=== PATIENT | female | born 1940 | race Caucasian/White ===

== ENCOUNTER → 2018-02-05 | Outpatient (CLI) | payer MEDICARE, MEDICAID ==
[~2018-02-05] MED LIST: POLY119P24 PO; TRAM-420 PO
--- NOTE | 2018-02-05 15:18 | RADIOLOGY IMAGING REPORT ---
FACILITY: [facility] PATIENT NAME: Lula Sanchez : 1940 MR: [id number] V: [id number] EXAM DATE: ORDERING PHYSICIAN: THALIA SORENSON TECHNOLOGIST: Location: [facility] Patient: Lula Sanchez : 1940 Visit/Account:[id number] Date of Sevice: 02/05/2018 Exam type: CHEST PA AND LAT History: Short of breath, smoker x35 years Comparison: None. Findings: There is an increased AP diameter the chest which can be seen with COPD. There is peribronchial thic kening throughout the lungs. No evidence of pleural effusions or overt pulmonary edema. The cardiac silhouette is mildly enlarged is marked ectasia the thoracic aorta. This ostomy in the visualized b ones and spondylotic changes of the thoracic spine. There are several mild wedge-shaped compression fractures in the thoracic spine IMPRESSION: 1. Increased AP diameter the chest which can be seen with COPD Bronchial thickening throughout the lungs which could be chronic although an acute peribronchial infl ammatory process not excluded Mild cardiomegaly and marked ectasia thoracic aorta Report Dictated By: Candelaria Meehan MD at 02/05/2018 3:10 PM Report E-Signed By: Candelaria Meehan MD at 02/05/2018 3:12 PM WSN:[id number]
== END ==
LOC: RAD 13:44
PROVIDERS: ATTEND Family Medicine
DX: I51.7 Cardiomegaly (principal); I77.811 Abdominal aortic ectasia; R91.8 Other nonspecific abnormal finding of lung field
CPT/HCPCS: 71046

== ENCOUNTER 2018-04-25 18:40 | Emergency (ER) | payer MEDICARE, MEDICAID ==
--- NOTE | 2018-04-25 18:43 | ER Report ---
History and Physical Time Seen By MD: 18:43 HPI/ROS CHIEF COMPLAINT: shoulder pain HISTORY OF PRESENT ILLNESS: This is a 78 year old female. She has a history of shoulder pain in the past, but tonight, she was lifting a gallon of milk out of the car when had sudden severe pain. When holding the arm still, she has no pain , but any movement seems to make it worse. Pain is described in the lateral and posterior shoulder. Normal sensation in the arm and hand. She can move the rest of the arm without pain, but shoulder movement causes pain. No chest pain or shortness of breath. No fevers or chills. Allergies: Coded Allergies: No Known Drug Allergies (Unverified , 07/13/15) Home Meds Active Scripts Hydrocodone Bit/Acetaminophen (HYDROCODON-ACETAMINOPHEN 5-325) 1 Each Tablet, 1 EACH PO Q4H Y for PAIN, #12 TAB 0 Refills Prov:JOJO RUIZ MD 04/25/18 Ketorolac Tromethamine (KETOROLAC TROMETHAMINE) 10 Mg Tab, 10 MG PO Q6H Y for PAIN, #12 TAB 0 Refills Prov:JOJO RUIZ MD 04/25/18 Reported Medications Multivitamin (MULTIVITAMINS) 1 Each Capsule, 1 EACH PO QDAY, CAPSULE 04/25/18 Digestive 8/L.acidoph/Pectin (Digestive Enzymes Tablet) 50 Million Cell-100 Mg Tablet, 1 TAB PO Q4H 04/25/18 Discontinued Scripts Tramadol Hcl (TRAMADOL HCL) 50 Mg Tablet, 50-100 MG PO Q6H for PAIN, #30 Prov:DONNA HUIZAR DO 07/13/15 Tramadol Hcl (TRAMADOL HCL) 50 Mg Tablet, 50 MG PO Q4-6H for PAIN, #30 MG TAKE ONE TO TWO TABLETS BY MOUTH EVERY FOUR TO SIX HOURS NEEDED Prov:DON PEÑA MD 06/30/15 Reviewed Nurses Notes: Yes Hx Smoking: No (3YRS AGO) Smoking Status: Former Smoker Hx Substance Use Disorder: No Constitutional Vital Sign - Last 24 Hours 04/25/18 04/25/18 04/25/18 04/25/18 18:46 18:55 19:00 19:10 Temp 98.6 Pulse 79 72 77 Resp 24 B/P (MAP) 193/95 159/92 (114) Pulse Ox 94 93 91 O2 Delivery Nasal Cannula 5/26/18 5/26/18 5/26/18 5/26/18 19:25 19:30 19:40 19:55 Pulse 71 72 80 B/P (MAP) 148/99 (115) Pulse Ox 94 91 93 04/25/18 04/25/18 04/25/18 04/25/18 20:00 20:10 20:25 20:30 Pulse 71 72 73 B/P (MAP) 169/100 (123) Pulse Ox 93 93 93 04/25/18 04/25/18 20:35 20:40 Pulse 72 71 B/P (MAP) 176/111 (132) Pulse Ox 91 93 Physical Exam General Appearance: The patient is alert. No acute distress. Respiratory: Breathing easily and unlabored. Clear to auscultation. Cardiovascular: Regular rate and rhythm. Normal capillary refill and radial pulses. Neurological: Alert and oriented x3. Normal sensation in the right arm and hand. Skin: Warm and dry. No rashes. Musculoskeletal: No pain with palpation throughout the shoulder, upper arm and clavicle. Normal range of motion of hand, wrist and elbow. Minimal pain with passive range of motion, some pain with extension and flexion, but not really with passive abduction. She has significant pain with active extension, flexion and abduction. Positive Neers and Jara tests. No pain over scapula, spine or clavicle. DIFFERENTIAL DIAGNOSIS: After history and physical exam, differential diagnosis was considered for pain in the shoulder, mild chronic with severe acute worsening, likely rotator cuff and impingement. Medical Decision Making EKG/Imaging Imaging SHOULDER MIN 2 VIEWS RIGHT HISTORY: Shoulder pain. Worsening of chronic pain. No known injury. COMPARISON: No prior shoulder x-rays. There is a prior chest x-ray from 2017. TECHNIQUE: AP and scapular Y views of the right shoulder. FINDINGS: There is diffuse bony demineralization. There is no acute fracture or dislocation. No acromioclavicular joint separation. There is stable deformity of the mid right clavicle and stable concave deformity of the mid superior cortex, potentially related to prior trauma. There are healed right-sided rib fractures. Stable deformities of the superior endplates of T6, T9, and T11. IMPRESSION: 1. No acute osseous abnormality of the right shoulder. Report Dictated By: Gail Robb at 04/25/2018 8:07 PM ED Course/Re-evaluation ED Course Discussed conservative treatment regarding rotator cuff problems. Negative x- ray. Given Toradol for pain. Instructed on use of sling, application of ice, relative rest and follow-up. Decision to Disposition Date: April 25, 2018 Decision to Disposition Time: 20:16 Depart Departure Latest Vital Signs Vital Signs Date Time Temp Pulse Resp B/P (MAP) Pulse Ox O2 Delivery O2 Flow Rate FiO2 04/25/18 20:40 71 176/111 (132) 93 04/25/18 18:46 98.6 24 Nasal Cannula Impression: Primary Impression: Rotator cuff (capsule) sprain Condition: Improved Disposition: HOME OR SELF-CARE Referrals: THALIA SORENSON DO (PCP) New Scripts Hydrocodone Bit/Acetaminophen (HYDROCODON-ACETAMINOPHEN 5-325) 1 Each Tablet 1 EACH PO Q4H Y for PAIN, #12 TAB 0 Refills Prov: JOJO RUIZ MD 04/25/18 Ketorolac Tromethamine (KETOROLAC TROMETHAMINE) 10 Mg Tab 10 MG PO Q6H Y for PAIN, #12 TAB 0 Refills Prov: JOJO RUIZ MD 04/25/18 Patient Instructions: Rotator Cuff Tendinitis (ED) Additional Instructions: Toradol 10mg, one every 6 hours for pain. Take with food. Apply ice 20 minutes every 1-2 hours while awake. Use the sling. Call [facility] on Friday for re-evaluation. You can follow-up with Dr. Sorenson as planned on Friday as well. For more severe pain you can take Lortab 5/325, one every 4 hours as needed for severe pain. Problem Qualifiers Primary Impression: Rotator cuff (capsule) sprain Encounter type: initial encounter Laterality: right Qualified Codes: S43.421A - Sprain of right rotator cuff capsule, initial encounter JOJO RUIZ MD April 25, 2018 18:43
[2018-04-25] MEDS ORDERED: MULT1CAP59 PO (19:14)
[2018-04-25] MEDS ORDERED: DIGE1TAB PO (19:14)
[2018-04-25] MEDS ORDERED: APAP/HYDROCODONE 325/5 TAB PO ONE (20:00)
[2018-04-25] MEDS ORDERED: KETOROLAC TROM 10MG TAB PO ONE (20:05)
--- NOTE | 2018-04-25 20:14 | RADIOLOGY IMAGING REPORT ---
[place] [facility] [place]IENT NAME: Lula Sanchez : 1940 MR: [id number] V: [id number] EXAM DATE: ORDERING PHYSICIAN: JOJO RUIZ TECHNOLOGIST: Location: [facility] Patient: Lula Sanchez : 1940 Visit/Account:[id number] Date of Sevice: 04/25/2018 ADDENDUM #1 Examination should be changed to SHOULDER MIN 3 VIEWS right as a Grashey view was added to the examin ation. There is severe narrowing of the glenohumeral joint, and there is spurring of the inferior hum eral head. Report Dictated By: Gail Robb at 04/26/2018 2:21 AM Report E-Signed By: Gail Robb at 04/26/2018 2:23 AM ORIGINAL REPORT SHOULDER MIN 2 VIEWS RIGHT HISTORY: Shoulder pain. Worsening of chronic pain. No known injury. COMPARISON: No prior shoulder x-rays. There is a prior chest x-ray from 02/05/2018. TECHNIQUE: AP and scapular Y views of the right shoulder. FINDINGS: There is diffuse bony demineralization. There is no acute fracture or dislocation. No acrom ioclavicular joint separation. There is stable deformity of the mid right clavicle and stable concave deformity of the mid superior cortex, potentially related to prior trauma. There are healed right-si ded rib fractures. Stable deformities of the superior endplates of T6, T9, and T11. IMPRESSION: 1. No acute osseous abnormality of the right shoulder. Report Dictated By: Gail Robb at 04/25/2018 8:07 PM Report E-Signed By: Gail Robb at 04/25/2018 8:10 PM WSN:[id number]
[2018-04-25] MEDS ORDERED: KET10 PO (20:18)
[2018-04-25] MEDS ORDERED: KETOROLAC TROM 10 MG TAB TH PO ONE (20:35)
[2018-04-25] MEDS ORDERED: LOR5/325 PO (20:35)
[2018-04-25] MEDS ORDERED: ACET/HYDROC 5/325MG TH ER ONLY 2 TAB/BOTTLE PO ONE (20:35)
[2018-04-25 20:40] VITALS: BP 176/111
== END 2018-04-25 20:40 | disposition home or self-care (01) ==
LOC: ER 18:51
DX: S43.421A Sprain of right rotator cuff capsule, initial encounter (principal)
CPT/HCPCS: 73030; 99283; A4565; A9270